=== PATIENT | male | born 1960 | race Two or more races ===

== ENCOUNTER 2021-08-17 10:57 | Inpatient (IN) | payer OTHER ==
[~2021-08-17] VITALS: Ht 172.7 cm; Wt 95.5 kg
[2021-08-17] MEDS ORDERED: DexAMETHasone SOD PHOS 10MG/1ML VIAL INJ IV ONE (11:30)
[2021-08-17 12:43] LABS: Basophils # (auto) 0 10 ^3/uL (0-0.2); Basophils % (auto) 0.2 % (0.0-2.0); Eosinophils # (auto) 0 10 ^3/uL (0-0.8); Eosinophils % (auto) 0.1 % (0.0-7.0); Hematocrit 40.8 % (41.0-53.0); Hemoglobin 14.5 g/dL (13.5-17.5); Lymphocytes # (auto) 0.6 10 ^3/uL (0.4-5.4); Lymphocytes % (auto) 10.2 % (10.0-50.0); Mean Corpuscular Hemoglobin 30.1 pg (28.0-32.0); Mean Corpuscular Hgb Conc. 35.7 g/dL (32.0-36.0); Mean Corpuscular Volume 84.3 fL (80.0-100.0); Monocytes # (auto) 0.6 10 ^3/uL (0-1.3); Monocytes % (auto) 10.8 % (0.0-12.0); Neutrophils # (auto) 4.6 10 ^3/uL (1.6-8.6); Neutrophils % (auto) 78.7 % (37.0-80.0); Nucleated Red Blood Cells % 0.1 %; Red Blood Cells 4.83 10^6/uL (4.5-5.90); Red Cell Distribution Width 13.4 % (11.8-14.3); White Blood Cell 5.8 10^3/uL (4.4-10.8)
[2021-08-17 12:57] LABS: Albumin 3.5 g/dL (3.4-5.0); Calcium 8.1 mg/dL (8.5-10.1); Potassium 3.4 mmol/L (3.5-5.1)
[2021-08-17 13:00] LABS: INR 1.09 (0.9-1.15); Partial Thromboplastin Time 32.1 sec (23.6-33.0)
[2021-08-17 13:04] LABS: BUN/Creatinine Ratio 12.8; Bilirubin, Total 0.9 mg/dL (0.2-1.0); Total Protein 7.4 g/dL (6.4-8.2)
[2021-08-17] MEDS ORDERED: DOCUSATE SOD 100 MG CAP PO PRN (23:15)
[2021-08-17] MEDS ORDERED: ONDANSETRON HCL 4 MG/2 ML VIAL IV PRN (23:15)
[2021-08-17] MEDS ORDERED: HYDROcodone-ACET 5/325MG TAB PO PRN (23:15)
[2021-08-17] MEDS ORDERED: ACETAMINOPHEN 325 MG TAB PO PRN (23:15)
[2021-08-18] MEDS ORDERED: POTASSIUM CHL 20 Meq TABLET PO ONE (00:30)
[2021-08-18] MEDS ORDERED: NITROGLYCERIN 0.4 MG SL TAB SL PRN (00:30)
[2021-08-18] MEDS ORDERED: MORPHINE SULFATE INJECTION 2 MG/ML SYRG IV PRN (00:30)
[2021-08-18 06:47] LABS: Basophils # (auto) 0 10 ^3/uL (0-0.2); Eosinophils # (auto) 0 10 ^3/uL (0-0.8); Lymphocytes # (auto) 0.8 10 ^3/uL (0.4-5.4); Neutrophils # (auto) 3.3 10 ^3/uL (1.6-8.6)
[2021-08-18 06:51] LABS: Basophils % (auto) 0.3 % (0.0-2.0); Lymphocytes % (auto) 17.4 % (10.0-50.0); Monocytes # (auto) 0.5 10 ^3/uL (0-1.3); Monocytes % (auto) 10.3 % (0.0-12.0); Nucleated Red Blood Cells % 0.8 %
[2021-08-18 06:53] LABS: Potassium 3.8 mmol/L (3.5-5.1)
[2021-08-18 07:07] LABS: Albumin 3.4 g/dL (3.4-5.0); BUN/Creatinine Ratio 18.3; Bilirubin, Total 0.8 mg/dL (0.2-1.0); Calcium 8.6 mg/dL (8.5-10.1); Total Protein 7.6 g/dL (6.4-8.2)
[2021-08-18 07:22] LABS: Hematocrit 41.3 % (41.0-53.0); Hemoglobin 14.5 g/dL (13.5-17.5); Mean Corpuscular Hemoglobin 29.7 pg (28.0-32.0); Mean Corpuscular Volume 84.6 fL (80.0-100.0); Red Blood Cells 4.88 10^6/uL (4.5-5.90); White Blood Cell 4.7 10^3/uL (4.4-10.8)
[2021-08-18 07:23] LABS: Mean Corpuscular Hgb Conc. 35.1 g/dL (32.0-36.0); Red Cell Distribution Width 13.8 % (11.8-14.3)
[2021-08-18] MEDS: AZITHROMYCIN 500MG/ 250ML 250 ML IV SCH ×2 (09:20→21:09)
[2021-08-18] MEDS: SODIUM CHLORIDE 0.9% 1,000 ML IV SCH ×2 (09:20→15:55)
[2021-08-18] MEDS: ASPirin 81 mg TAB PO SCH (09:41)
[2021-08-18] MEDS: ASCORBIC ACID 500 MG TAB PO SCH ×2 (09:41→21:10)
[2021-08-18] MEDS: FAMOTIDINE (10MG/ML) 2ML VL IV SCH (09:41)
[2021-08-18] MEDS: ZINC SULFATE 220mg CAP or TAB PO SCH (09:41)
[2021-08-18] MEDS: DexAMETHasone SOD PHOS 10MG/1ML VIAL INJ IV SCH (09:41)
[2021-08-18] MEDS: MULTIPLE VITAMIN TAB PO SCH (09:41)
[2021-08-18] MEDS: ENOXAPARIN SOD 40 MG/0.4 ML SYRINGE SC SCH (10:25)
[2021-08-18 17:00] VITALS: BP 128/81
[2021-08-18] MEDS ORDERED: TAM04C PO (17:01)
[2021-08-18] MEDS ORDERED: FINA5TAB4 PO (17:02)
[2021-08-18] MEDS ORDERED: ATOR20TA PO (17:02)
[2021-08-18] MEDS ORDERED: CHOL20007 OR (17:03)
[2021-08-18] MEDS: TAMSULOSIN HYDROCHLORIDE 0.4 MG CAP PO SCH (18:00)
[2021-08-18] MEDS: ATORVASTATIN 20 MG TAB PO SCH (21:10)
[2021-08-18 22:00] VITALS: BP 118/75
[2021-08-19 05:00] VITALS: BP 117/76
[2021-08-19 08:00] VITALS: BP 119/76
[2021-08-19 08:07] LABS: Basophils # (auto) 0 10 ^3/uL (0-0.2); Basophils % (auto) 0.1 % (0.0-2.0); Eosinophils # (auto) 0 10 ^3/uL (0-0.8); Eosinophils % (auto) 0.1 % (0.0-7.0); Hematocrit 36.4 % (41.0-53.0); Hemoglobin 13.1 g/dL (13.5-17.5); Lymphocytes # (auto) 0.6 10 ^3/uL (0.4-5.4); Lymphocytes % (auto) 6.9 % (10.0-50.0); Mean Corpuscular Hemoglobin 30.4 pg (28.0-32.0); Mean Corpuscular Volume 84.5 fL (80.0-100.0); Monocytes # (auto) 0.7 10 ^3/uL (0-1.3); Monocytes % (auto) 8.8 % (0.0-12.0); Neutrophils # (auto) 6.7 10 ^3/uL (1.6-8.6); Neutrophils % (auto) 84.1 % (37.0-80.0); Nucleated Red Blood Cells % 0.1 %; Red Blood Cells 4.31 10^6/uL (4.5-5.90); Red Cell Distribution Width 13.3 % (11.8-14.3)
[2021-08-19 08:15] LABS: Potassium 3.5 mmol/L (3.5-5.1)
[2021-08-19 08:21] LABS: BUN/Creatinine Ratio 21.9; Calcium 8.2 mg/dL (8.5-10.1)
[2021-08-19] MEDS: SODIUM CHLORIDE 0.9% 1,000 ML IV SCH (08:31)
[2021-08-19] MEDS: ASCORBIC ACID 500 MG TAB PO SCH ×2 (09:59→21:28)
[2021-08-19] MEDS: ZINC SULFATE 220mg CAP or TAB PO SCH (09:59)
[2021-08-19] MEDS: ASPirin 81 mg TAB PO SCH (09:59)
[2021-08-19] MEDS: FAMOTIDINE (10MG/ML) 2ML VL IV SCH (10:00)
[2021-08-19] MEDS: DexAMETHasone SOD PHOS 10MG/1ML VIAL INJ IV SCH (10:00)
[2021-08-19] MEDS: MULTIPLE VITAMIN TAB PO SCH (10:00)
[2021-08-19] MEDS: ENOXAPARIN SOD 40 MG/0.4 ML SYRINGE SC SCH (10:00)
[2021-08-19] MEDS ORDERED: REMDESIVIR PER PHARMACY 0 ML IV SCH (11:15)
[2021-08-19] MEDS ORDERED: cefTRIAXone 1GM/50ML D5W 50 ML IV ONE (11:30)
[2021-08-19 12:43] VITALS: BP 116/60
[2021-08-19] MEDS ORDERED: REMDESIVIR 200 MG in NS 210ml LOADING DOSE ADULT IV ONE (16:00)
[2021-08-19 17:30] VITALS: BP 119/69
[2021-08-19] MEDS: TAMSULOSIN HYDROCHLORIDE 0.4 MG CAP PO SCH (18:44)
[2021-08-19] MEDS: ATORVASTATIN 20 MG TAB PO SCH (21:28)
[2021-08-19] MEDS: DOXYCYCLINE 100 MG TAB/CAP PO SCH (21:28)
[2021-08-19 22:00] VITALS: BP 128/77
[2021-08-20] MEDS: SODIUM CHLORIDE 0.9% 1,000 ML IV SCH ×2 (01:15→17:55)
[2021-08-20 05:00] VITALS: BP 120/72
[2021-08-20 07:28] LABS: Basophils # (auto) 0 10 ^3/uL (0-0.2); Basophils % (auto) 0.1 % (0.0-2.0); Eosinophils # (auto) 0 10 ^3/uL (0-0.8); Hematocrit 35.1 % (41.0-53.0); Hemoglobin 12.7 g/dL (13.5-17.5); Lymphocytes # (auto) 0.6 10 ^3/uL (0.4-5.4); Lymphocytes % (auto) 7.3 % (10.0-50.0); Mean Corpuscular Hemoglobin 30.8 pg (28.0-32.0); Mean Corpuscular Hgb Conc. 36.1 g/dL (32.0-36.0); Mean Corpuscular Volume 85.3 fL (80.0-100.0); Monocytes # (auto) 0.5 10 ^3/uL (0-1.3); Monocytes % (auto) 6.1 % (0.0-12.0); Neutrophils # (auto) 7.2 10 ^3/uL (1.6-8.6); Neutrophils % (auto) 86.5 % (37.0-80.0); Nucleated Red Blood Cells % 0.1 %; Red Blood Cells 4.11 10^6/uL (4.5-5.90); Red Cell Distribution Width 13.4 % (11.8-14.3); White Blood Cell 8.3 10^3/uL (4.4-10.8)
[2021-08-20 07:42] LABS: Potassium 3.7 mmol/L (3.5-5.1)
[2021-08-20 07:51] LABS: Albumin 2.8 g/dL (3.4-5.0); BUN/Creatinine Ratio 18.4; Calcium 8.3 mg/dL (8.5-10.1)
[2021-08-20 07:53] LABS: Bilirubin, Total 0.6 mg/dL (0.2-1.0); Total Protein 5.9 g/dL (6.4-8.2)
[2021-08-20] MEDS: cefTRIAXone 1GM/50ML D5W 50 ML IV SCH (09:21)
[2021-08-20 09:22] VITALS: BP 124/71
[2021-08-20] MEDS: FAMOTIDINE (10MG/ML) 2ML VL IV SCH (09:22)
[2021-08-20] MEDS: ASPirin 81 mg TAB PO SCH (09:22)
[2021-08-20] MEDS: ZINC SULFATE 220mg CAP or TAB PO SCH (09:22)
[2021-08-20] MEDS: DexAMETHasone SOD PHOS 10MG/1ML VIAL INJ IV SCH (09:22)
[2021-08-20] MEDS: DOXYCYCLINE 100 MG TAB/CAP PO SCH ×2 (09:23→21:56)
[2021-08-20] MEDS: ASCORBIC ACID 500 MG TAB PO SCH ×2 (09:23→21:57)
[2021-08-20] MEDS: ENOXAPARIN SOD 40 MG/0.4 ML SYRINGE SC SCH (09:23)
[2021-08-20] MEDS: MULTIPLE VITAMIN TAB PO SCH (09:23)
[2021-08-20 12:34] VITALS: BP 137/62
[2021-08-20] MEDS: REMDESIVIR 100mg 100 MG in SODIUM CHL 0.9% 230 ML IV SCH (16:03)
[2021-08-20 16:42] VITALS: BP 119/68
[2021-08-20] MEDS ORDERED: ALBUTEROL SULF HFA 90MCG INH 200DOSE IN SCH (18:00)
[2021-08-20] MEDS: TAMSULOSIN HYDROCHLORIDE 0.4 MG CAP PO SCH (18:53)
[2021-08-20 20:00] VITALS: BP 109/77
[2021-08-20] MEDS: FINASTERIDE 5 MG TAB PO SCH (20:30)
[2021-08-20] MEDS: ATORVASTATIN 20 MG TAB PO SCH (21:56)
[2021-08-20 22:00] VITALS: BP 109/77
[2021-08-21 05:00] VITALS: BP 110/66
[2021-08-21] MEDS ORDERED: ALBUTEROL SULF HFA 90MCG INH 200DOSE IN PRN (06:00)
[2021-08-21 06:07] LABS: Basophils # (auto) 0 10 ^3/uL (0-0.2); Basophils % (auto) 0.2 % (0.0-2.0); Eosinophils # (auto) 0 10 ^3/uL (0-0.8); Hemoglobin 12.8 g/dL (13.5-17.5); Lymphocytes # (auto) 0.6 10 ^3/uL (0.4-5.4); Monocytes # (auto) 0.3 10 ^3/uL (0-1.3); Monocytes % (auto) 4.9 % (0.0-12.0)
[2021-08-21 06:10] LABS: Eosinophils % (auto) 0.3 % (0.0-7.0); Hematocrit 35.5 % (41.0-53.0); Lymphocytes % (auto) 8.6 % (10.0-50.0); Mean Corpuscular Hemoglobin 31.2 pg (28.0-32.0); Mean Corpuscular Volume 86.5 fL (80.0-100.0); Neutrophils # (auto) 5.8 10 ^3/uL (1.6-8.6); Nucleated Red Blood Cells % 0.1 %; Red Cell Distribution Width 13.4 % (11.8-14.3); White Blood Cell 6.7 10^3/uL (4.4-10.8)
[2021-08-21] MEDS: SODIUM CHLORIDE 0.9% 1,000 ML IV SCH ×2 (07:00→10:35)
[2021-08-21 08:37] VITALS: BP 143/82
[2021-08-21] MEDS: DexAMETHasone SOD PHOS 10MG/1ML VIAL INJ IV SCH (08:56)
[2021-08-21] MEDS: FAMOTIDINE (10MG/ML) 2ML VL IV SCH (08:56)
[2021-08-21] MEDS: cefTRIAXone 1GM/50ML D5W 50 ML IV SCH (08:56)
[2021-08-21] MEDS: MULTIPLE VITAMIN TAB PO SCH (08:57)
[2021-08-21] MEDS: ASPirin 81 mg TAB PO SCH (08:57)
[2021-08-21] MEDS: ZINC SULFATE 220mg CAP or TAB PO SCH (08:57)
[2021-08-21] MEDS: FINASTERIDE 5 MG TAB PO SCH (08:57)
[2021-08-21] MEDS: ASCORBIC ACID 500 MG TAB PO SCH ×2 (08:58→22:03)
[2021-08-21] MEDS: ENOXAPARIN SOD 40 MG/0.4 ML SYRINGE SC SCH (08:58)
[2021-08-21] MEDS: DOXYCYCLINE 100 MG TAB/CAP PO SCH ×2 (08:58→22:03)
[2021-08-21 09:40] LABS: Potassium 3.4 mmol/L (3.5-5.1)
[2021-08-21 09:46] LABS: Albumin 2.9 g/dL (3.4-5.0); Bilirubin, Total 0.7 mg/dL (0.2-1.0); Calcium 8.2 mg/dL (8.5-10.1); Total Protein 6.4 g/dL (6.4-8.2)
[2021-08-21] MEDS ORDERED: IOHEXOL 350 MG/ML 100ML IJ ONE (10:26)
[2021-08-21] MEDS ORDERED: ALBUTEROL SULF 2.5 MG/0.5ML(0.5%) NEB SOLN NEB PRN (10:30)
[2021-08-21 12:32] VITALS: BP 130/72
[2021-08-21] MEDS: REMDESIVIR 100mg 100 MG in SODIUM CHL 0.9% 230 ML IV SCH ×2 (14:46→15:00)
[2021-08-21 16:43] VITALS: BP 117/67
[2021-08-21] MEDS: TAMSULOSIN HYDROCHLORIDE 0.4 MG CAP PO SCH (17:37)
[2021-08-21 22:00] VITALS: BP 113/83
[2021-08-21] MEDS: ATORVASTATIN 20 MG TAB PO SCH (22:03)
[2021-08-22] VITALS (8 sets, daily range): BP systolic 105–130; BP diastolic 68–79
[2021-08-22 07:20] LABS: Basophils # (auto) 0 10 ^3/uL (0-0.2); Basophils % (auto) 0.1 % (0.0-2.0); Eosinophils # (auto) 0.2 10 ^3/uL (0-0.8); Eosinophils % (auto) 3.1 % (0.0-7.0); Hemoglobin 12.8 g/dL (13.5-17.5); Lymphocytes # (auto) 0.7 10 ^3/uL (0.4-5.4); Lymphocytes % (auto) 10.6 % (10.0-50.0); Mean Corpuscular Hemoglobin 31.2 pg (28.0-32.0); Mean Corpuscular Hgb Conc. 35.6 g/dL (32.0-36.0); Mean Corpuscular Volume 87.6 fL (80.0-100.0); Monocytes # (auto) 0.3 10 ^3/uL (0-1.3); Monocytes % (auto) 4.3 % (0.0-12.0); Neutrophils # (auto) 5.4 10 ^3/uL (1.6-8.6); Neutrophils % (auto) 81.9 % (37.0-80.0); Nucleated Red Blood Cells % 0.1 %; Red Blood Cells 4.11 10^6/uL (4.5-5.90); Red Cell Distribution Width 13.3 % (11.8-14.3); White Blood Cell 6.6 10^3/uL (4.4-10.8)
[2021-08-22 07:34] LABS: Potassium 3.5 mmol/L (3.5-5.1)
[2021-08-22 07:40] LABS: Albumin 2.5 g/dL (3.4-5.0); BUN/Creatinine Ratio 14.1; Calcium 8.4 mg/dL (8.5-10.1)
[2021-08-22 07:42] LABS: Bilirubin, Total 0.8 mg/dL (0.2-1.0)
[2021-08-22] MEDS: FUROSEMIDE 20 MG/2 ML VIAL IV SCH (12:00)
[2021-08-22] MEDS: FAMOTIDINE (10MG/ML) 2ML VL IV SCH (12:00)
[2021-08-22] MEDS: DexAMETHasone SOD PHOS 10MG/1ML VIAL INJ IV SCH (12:00)
[2021-08-22] MEDS: ZINC SULFATE 220mg CAP or TAB PO SCH (12:30)
[2021-08-22] MEDS: ENOXAPARIN SOD 40 MG/0.4 ML SYRINGE SC SCH (12:30)
[2021-08-22] MEDS: DOXYCYCLINE 100 MG TAB/CAP PO SCH ×2 (12:30→21:55)
[2021-08-22] MEDS: ASCORBIC ACID 500 MG TAB PO SCH ×2 (12:30→21:56)
[2021-08-22] MEDS: FINASTERIDE 5 MG TAB PO SCH (12:30)
[2021-08-22] MEDS: MULTIPLE VITAMIN TAB PO SCH (12:30)
[2021-08-22] MEDS: cefTRIAXone 1GM/50ML D5W 50 ML IV SCH (12:30)
[2021-08-22] MEDS: ASPirin 81 mg TAB PO SCH (12:30)
[2021-08-22] MEDS: REMDESIVIR 100mg 100 MG in SODIUM CHL 0.9% 230 ML IV SCH (16:30)
[2021-08-22] MEDS: TAMSULOSIN HYDROCHLORIDE 0.4 MG CAP PO SCH (18:00)
[2021-08-22] MEDS: SODIUM CHLORIDE 0.9% 1,000 ML IV SCH (19:55)
[2021-08-22] MEDS: ALBUTEROL SULF HFA 90MCG INH 200DOSE IN PRN (21:25)
[2021-08-22] MEDS: ATORVASTATIN 20 MG TAB PO SCH (21:55)
[2021-08-23] VITALS (7 sets, daily range): BP systolic 106–128; BP diastolic 67–87
[2021-08-23 07:07] LABS: Basophils # (auto) 0 10 ^3/uL (0-0.2); Eosinophils # (auto) 0 10 ^3/uL (0-0.8); Hematocrit 34.8 % (41.0-53.0); Lymphocytes # (auto) 0.5 10 ^3/uL (0.4-5.4); Monocytes # (auto) 0.3 10 ^3/uL (0-1.3); Neutrophils # (auto) 3.9 10 ^3/uL (1.6-8.6); Neutrophils % (auto) 82.7 % (37.0-80.0); White Blood Cell 4.7 10^3/uL (4.4-10.8)
[2021-08-23 07:10] LABS: Basophils % (auto) 0.4 % (0.0-2.0); Eosinophils % (auto) 0.7 % (0.0-7.0); Hemoglobin 12.4 g/dL (13.5-17.5); Lymphocytes % (auto) 9.7 % (10.0-50.0); Mean Corpuscular Hemoglobin 31.6 pg (28.0-32.0); Mean Corpuscular Hgb Conc. 35.7 g/dL (32.0-36.0); Mean Corpuscular Volume 88.5 fL (80.0-100.0); Monocytes % (auto) 6.5 % (0.0-12.0); Nucleated Red Blood Cells % 0.5 %; Red Blood Cells 3.93 10^6/uL (4.5-5.90); Red Cell Distribution Width 13.2 % (11.8-14.3)
[2021-08-23 07:33] LABS: Albumin 2.3 g/dL (3.4-5.0); BUN/Creatinine Ratio 13.5; Bilirubin, Total 0.7 mg/dL (0.2-1.0); Calcium 8.4 mg/dL (8.5-10.1); Total Protein 5.9 g/dL (6.4-8.2)
[2021-08-23] MEDS: cefTRIAXone 1GM/50ML D5W 50 ML IV SCH (10:00)
[2021-08-23] MEDS: DexAMETHasone SOD PHOS 10MG/1ML VIAL INJ IV SCH (10:30)
[2021-08-23] MEDS: ASPirin 81 mg TAB PO SCH (10:30)
[2021-08-23] MEDS: ENOXAPARIN SOD 40 MG/0.4 ML SYRINGE SC SCH (10:30)
[2021-08-23] MEDS: FINASTERIDE 5 MG TAB PO SCH (10:30)
[2021-08-23] MEDS: ZINC SULFATE 220mg CAP or TAB PO SCH (10:30)
[2021-08-23] MEDS: FUROSEMIDE 20 MG/2 ML VIAL IV SCH (10:30)
[2021-08-23] MEDS: DOXYCYCLINE 100 MG TAB/CAP PO SCH ×2 (10:30→21:02)
[2021-08-23] MEDS: ASCORBIC ACID 500 MG TAB PO SCH ×2 (10:30→21:02)
[2021-08-23] MEDS: FAMOTIDINE (10MG/ML) 2ML VL IV SCH (10:30)
[2021-08-23] MEDS: MULTIPLE VITAMIN TAB PO SCH (10:30)
[2021-08-23] MEDS: SODIUM CHLORIDE 0.9% 1,000 ML IV SCH (12:35)
[2021-08-23] MEDS: REMDESIVIR 100mg 100 MG in SODIUM CHL 0.9% 230 ML IV SCH (15:45)
[2021-08-23] MEDS: TAMSULOSIN HYDROCHLORIDE 0.4 MG CAP PO SCH (18:30)
[2021-08-23] MEDS: ATORVASTATIN 20 MG TAB PO SCH (21:02)
[2021-08-23] MEDS: ALBUTEROL SULF HFA 90MCG INH 200DOSE IN PRN (21:58)
[2021-08-24] VITALS (8 sets, daily range): BP systolic 109–130; BP diastolic 70–81
[2021-08-24] MEDS: SODIUM CHLORIDE 0.9% 1,000 ML IV SCH ×2 (05:15→21:32)
[2021-08-24] MEDS: ALBUTEROL SULF HFA 90MCG INH 200DOSE IN PRN ×2 (06:05→20:15)
[2021-08-24 06:56] LABS: Basophils # (auto) 0 10 ^3/uL (0-0.2); Eosinophils # (auto) 0 10 ^3/uL (0-0.8); Monocytes # (auto) 0.4 10 ^3/uL (0-1.3); Neutrophils # (auto) 6.5 10 ^3/uL (1.6-8.6)
[2021-08-24 07:01] LABS: Basophils % (auto) 0.1 % (0.0-2.0); Eosinophils % (auto) 0.5 % (0.0-7.0); Hematocrit 36.9 % (41.0-53.0); Hemoglobin 12.7 g/dL (13.5-17.5); Lymphocytes # (auto) 0.6 10 ^3/uL (0.4-5.4); Lymphocytes % (auto) 7.8 % (10.0-50.0); Mean Corpuscular Hemoglobin 30.1 pg (28.0-32.0); Mean Corpuscular Hgb Conc. 34.4 g/dL (32.0-36.0); Mean Corpuscular Volume 87.4 fL (80.0-100.0); Monocytes % (auto) 5.5 % (0.0-12.0); Neutrophils % (auto) 86.1 % (37.0-80.0); Red Blood Cells 4.22 10^6/uL (4.5-5.90); Red Cell Distribution Width 13.6 % (11.8-14.3); White Blood Cell 7.6 10^3/uL (4.4-10.8)
[2021-08-24 07:06] LABS: BUN/Creatinine Ratio 22.7; Calcium 8.8 mg/dL (8.5-10.1); Potassium 4.1 mmol/L (3.5-5.1)
[2021-08-24] MEDS: cefTRIAXone 1GM/50ML D5W 50 ML IV SCH (08:30)
[2021-08-24] MEDS: FAMOTIDINE (10MG/ML) 2ML VL IV SCH (09:45)
[2021-08-24] MEDS: ZINC SULFATE 220mg CAP or TAB PO SCH (09:45)
[2021-08-24] MEDS: DexAMETHasone SOD PHOS 10MG/1ML VIAL INJ IV SCH (09:45)
[2021-08-24] MEDS: FUROSEMIDE 20 MG/2 ML VIAL IV SCH (09:45)
[2021-08-24] MEDS: FINASTERIDE 5 MG TAB PO SCH (09:45)
[2021-08-24] MEDS: DOXYCYCLINE 100 MG TAB/CAP PO SCH (09:45)
[2021-08-24] MEDS: ASPirin 81 mg TAB PO SCH (09:45)
[2021-08-24] MEDS: ENOXAPARIN SOD 40 MG/0.4 ML SYRINGE SC SCH (09:45)
[2021-08-24] MEDS: ASCORBIC ACID 500 MG TAB PO SCH ×2 (09:45→21:32)
[2021-08-24] MEDS: MULTIPLE VITAMIN TAB PO SCH (09:45)
[2021-08-24] MEDS: REMDESIVIR 100mg 100 MG in SODIUM CHL 0.9% 230 ML IV SCH (15:45)
[2021-08-24] MEDS: TAMSULOSIN HYDROCHLORIDE 0.4 MG CAP PO SCH (18:00)
[2021-08-24] MEDS: ATORVASTATIN 20 MG TAB PO SCH (21:32)
[2021-08-25 05:00] VITALS: BP 128/85
[2021-08-25 07:41] LABS: Basophils # (auto) 0.1 10 ^3/uL (0-0.2); Eosinophils # (auto) 0 10 ^3/uL (0-0.8); Lymphocytes # (auto) 0.5 10 ^3/uL (0.4-5.4); Monocytes # (auto) 0.3 10 ^3/uL (0-1.3); White Blood Cell 8.3 10^3/uL (4.4-10.8)
[2021-08-25 07:43] LABS: Basophils % (auto) 1.3 % (0.0-2.0); Eosinophils % (auto) 0.4 % (0.0-7.0); Hematocrit 37.4 % (41.0-53.0); Hemoglobin 13.4 g/dL (13.5-17.5); Lymphocytes % (auto) 6.3 % (10.0-50.0); Mean Corpuscular Hemoglobin 30.8 pg (28.0-32.0); Mean Corpuscular Hgb Conc. 35.8 g/dL (32.0-36.0); Monocytes % (auto) 3.7 % (0.0-12.0); Neutrophils # (auto) 7.3 10 ^3/uL (1.6-8.6); Neutrophils % (auto) 88.3 % (37.0-80.0); Nucleated Red Blood Cells % 0.1 %; Red Blood Cells 4.35 10^6/uL (4.5-5.90); Red Cell Distribution Width 13.4 % (11.8-14.3)
[2021-08-25] MEDS: ALBUTEROL SULF HFA 90MCG INH 200DOSE IN PRN (07:48)
[2021-08-25 08:01] LABS: Albumin 2.5 g/dL (3.4-5.0); BUN/Creatinine Ratio 21.6; Bilirubin, Total 0.5 mg/dL (0.2-1.0); Calcium 8.6 mg/dL (8.5-10.1)
[2021-08-25] MEDS: cefTRIAXone 1GM/50ML D5W 50 ML IV SCH (09:00)
[2021-08-25] MEDS: FAMOTIDINE (10MG/ML) 2ML VL IV SCH (09:11)
[2021-08-25] MEDS: ASPirin 81 mg TAB PO SCH (09:11)
[2021-08-25] MEDS: ZINC SULFATE 220mg CAP or TAB PO SCH (09:11)
[2021-08-25] MEDS: DexAMETHasone SOD PHOS 10MG/1ML VIAL INJ IV SCH (09:11)
[2021-08-25] MEDS: MULTIPLE VITAMIN TAB PO SCH (09:11)
[2021-08-25] MEDS: ASCORBIC ACID 500 MG TAB PO SCH ×2 (09:12→22:12)
[2021-08-25] MEDS: ENOXAPARIN SOD 40 MG/0.4 ML SYRINGE SC SCH (09:12)
[2021-08-25] MEDS: FINASTERIDE 5 MG TAB PO SCH (09:12)
[2021-08-25 09:30] VITALS: BP 108/69
[2021-08-25] MEDS: FUROSEMIDE 20 MG/2 ML VIAL IV SCH (10:04)
[2021-08-25 13:00] VITALS: BP 110/65
[2021-08-25] MEDS: SODIUM CHLORIDE 0.9% 1,000 ML IV SCH (14:22)
[2021-08-25 16:25] VITALS: BP 109/74
[2021-08-25] MEDS: TAMSULOSIN HYDROCHLORIDE 0.4 MG CAP PO SCH (19:30)
[2021-08-25 22:00] VITALS: BP 108/65
[2021-08-25] MEDS: ATORVASTATIN 20 MG TAB PO SCH (22:12)
[2021-08-26 05:00] VITALS: BP 107/71
[2021-08-26 06:58] LABS: Basophils # (auto) 0 10 ^3/uL (0-0.2); Basophils % (auto) 0.1 % (0.0-2.0); Eosinophils # (auto) 0.1 10 ^3/uL (0-0.8); Eosinophils % (auto) 0.6 % (0.0-7.0); Hematocrit 38.6 % (41.0-53.0); Hemoglobin 13.3 g/dL (13.5-17.5); Lymphocytes # (auto) 0.7 10 ^3/uL (0.4-5.4); Lymphocytes % (auto) 7.5 % (10.0-50.0); Mean Corpuscular Hemoglobin 29.8 pg (28.0-32.0); Mean Corpuscular Hgb Conc. 34.5 g/dL (32.0-36.0); Mean Corpuscular Volume 86.4 fL (80.0-100.0); Monocytes # (auto) 0.3 10 ^3/uL (0-1.3); Monocytes % (auto) 3.7 % (0.0-12.0); Neutrophils # (auto) 8.4 10 ^3/uL (1.6-8.6); Neutrophils % (auto) 88.1 % (37.0-80.0); Red Blood Cells 4.47 10^6/uL (4.5-5.90); Red Cell Distribution Width 13.5 % (11.8-14.3); White Blood Cell 9.5 10^3/uL (4.4-10.8)
[2021-08-26 07:12] LABS: Potassium 4.6 mmol/L (3.5-5.1)
[2021-08-26] MEDS: SODIUM CHLORIDE 0.9% 1,000 ML IV SCH (07:15)
[2021-08-26 07:21] LABS: Albumin 2.3 g/dL (3.4-5.0); BUN/Creatinine Ratio 23.5; Bilirubin, Total 0.6 mg/dL (0.2-1.0); Calcium 8.8 mg/dL (8.5-10.1)
[2021-08-26 08:57] VITALS: BP 101/64
[2021-08-26] MEDS: cefTRIAXone 1GM/50ML D5W 50 ML IV SCH (09:04)
[2021-08-26] MEDS: ASCORBIC ACID 500 MG TAB PO SCH (09:04)
[2021-08-26] MEDS: FAMOTIDINE (10MG/ML) 2ML VL IV SCH (09:04)
[2021-08-26] MEDS: ASPirin 81 mg TAB PO SCH (09:04)
[2021-08-26] MEDS: FUROSEMIDE 20 MG/2 ML VIAL IV SCH (09:04)
[2021-08-26] MEDS: ZINC SULFATE 220mg CAP or TAB PO SCH (09:04)
[2021-08-26] MEDS: DexAMETHasone SOD PHOS 10MG/1ML VIAL INJ IV SCH (09:04)
[2021-08-26] MEDS: ENOXAPARIN SOD 40 MG/0.4 ML SYRINGE SC SCH (09:04)
[2021-08-26] MEDS: MULTIPLE VITAMIN TAB PO SCH (09:04)
[2021-08-26] MEDS: FINASTERIDE 5 MG TAB PO SCH (09:04)
[2021-08-26] MEDS ORDERED: ASCO500T11 PO (11:25)
[2021-08-26] MEDS ORDERED: ALBUAER3 IN (11:25)
[2021-08-26] MEDS ORDERED: ERGO20002 PO (11:25)
[2021-08-26] MEDS ORDERED: DEXA4TAB90 PO (11:25)
[2021-08-26 13:00] VITALS: BP 115/71
== END 2021-08-26 17:30 | disposition home or self-care (01) | DRG 137 ==
LOC: ER 10:57 → OVERFLOW 08-18 00:26 → WEST WING 08-18 15:28
PROVIDERS: ADMIT Nurse Practitioner Family; ATTEND Internal Medicine Pulmonary Disease
PROC: XW033E5 Introduction of Remdesivir Anti-infective into Peripheral Vein, Percutaneous Approach, New Technology Group 5 (ICD-10-PCS; principal; 2021-08-19)
DX: U07.1 COVID-19 (principal); J96.01 Acute respiratory failure with hypoxia; J12.82 Pneumonia due to coronavirus disease 2019; N17.9 Acute kidney failure, unspecified; E87.1 Hypo-osmolality and hyponatremia; E87.6 Hypokalemia; I10 Essential (primary) hypertension; E86.0 Dehydration; N40.0 Benign prostatic hyperplasia without lower urinary tract symptoms; Z23 Encounter for immunization
CPT/HCPCS: 36415; 36600; 71046; 71275; 80048; 80053; 82728; 82805; 83036; 83880; 84484; 85025; 85379; 85610; 85730; 86141; 87426; 93005; 93970; 94640; 96361; 96365; 96366; 96372; 96375; 96376; G0378; J0696; J1100; J2405; J3490

== ENCOUNTER 2021-10-02 13:50 | Inpatient (IN) | payer OTHER ==
[~2021-10-02] VITALS: Ht 167.6 cm; Wt 88.9 kg
[~2021-10-02 13:50] MED LIST: ALBUAER3 IN; ASCO500T11 PO; ATOR20TA PO; CHOL20007 OR; DEXA4TAB90 PO; ERGO20002 PO; FINA5TAB4 PO; TAM04C PO
[2021-10-02] MEDS: SODIUM CHLORIDE 0.9% 1,000 ML IV ONE (16:15)
[2021-10-02 17:13] LABS: Basophils # (auto) 0.1 10 ^3/uL (0-0.2); Basophils % (auto) 1.1 % (0.0-2.0); Eosinophils # (auto) 0.1 10 ^3/uL (0-0.8); Eosinophils % (auto) 0.9 % (0.0-7.0); Hematocrit 29.2 % (41.0-53.0); Hemoglobin 10.1 g/dL (13.5-17.5); Lymphocytes # (auto) 1.3 10 ^3/uL (0.4-5.4); Lymphocytes % (auto) 20.3 % (10.0-50.0); Mean Corpuscular Hemoglobin 30.1 pg (28.0-32.0); Mean Corpuscular Hgb Conc. 34.7 g/dL (32.0-36.0); Mean Corpuscular Volume 86.9 fL (80.0-100.0); Monocytes # (auto) 0.4 10 ^3/uL (0-1.3); Monocytes % (auto) 5.4 % (0.0-12.0); Neutrophils # (auto) 4.8 10 ^3/uL (1.6-8.6); Neutrophils % (auto) 72.3 % (37.0-80.0); Nucleated Red Blood Cells % 0.1 %; Red Blood Cells 3.36 10^6/uL (4.5-5.90); White Blood Cell 6.6 10^3/uL (4.4-10.8)
[2021-10-02 17:29] LABS: Albumin 2.4 g/dL (3.4-5.0); Calcium 8.6 mg/dL (8.5-10.1); Magnesium 2.3 mg/dL (1.6-2.6); Potassium 3.5 mmol/L (3.5-5.1)
[2021-10-02 17:35] LABS: BUN/Creatinine Ratio 10.8; Bilirubin, Total 0.9 mg/dL (0.2-1.0); Total Protein 6.6 g/dL (6.4-8.2)
[2021-10-02 17:38] LABS: INR 1.06 (0.9-1.15); Partial Thromboplastin Time 42.8 sec (23.6-33.0)
[2021-10-02] MEDS ORDERED: CHOLECALCIFEROL (VITD3) 2,000 UNIT CAP/TAB PO ONE (18:15)
[2021-10-02] MEDS ORDERED: ASPirin 325 MG TAB PO ONE (18:15)
[2021-10-02] MEDS ORDERED: DexAMETHasone SOD PHOS 10MG/1ML VIAL INJ IV ONE (18:15)
[2021-10-02] MEDS ORDERED: ASCORBIC ACID 500 MG TAB PO ONE (18:15)
[2021-10-02] MEDS ORDERED: cefTRIAXone 1GM/50ML D5W 50 ML IV ONE (18:15)
[2021-10-02] MEDS ORDERED: ZINC SULFATE 220mg CAP or TAB PO ONE (18:15)
[2021-10-02] MEDS ORDERED: AZITHROMYCIN 500MG/ 250ML 250 ML IV ONE (18:15)
[2021-10-02] MEDS ORDERED: IOHEXOL 350 MG/ML 100ML IJ ONE (18:31)
[2021-10-03] MEDS ORDERED: ENOXAPARIN SOD 80 MG/0.8ML SYRINGE SC ONE (00:15)
[2021-10-03] MEDS ORDERED: ONDANSETRON HCL 4 MG/2 ML VIAL IV PRN (01:30)
[2021-10-03] MEDS ORDERED: MORPHINE SULFATE 4 MG/ML SYR/VIAL IV PRN (01:30)
[2021-10-03] MEDS ORDERED: IPRATROPIUM BROM 0.5 MG/2.5ML INH SOL NEB PRN (01:30)
[2021-10-03] MEDS ORDERED: SODIUM CHLORIDE 0.9% 1,000 ML IV SCH (01:30)
[2021-10-03] MEDS ORDERED: DOCUSATE SOD 100 MG CAP PO PRN (01:30)
[2021-10-03] MEDS ORDERED: ALBUTEROL SULF 2.5 MG/0.5ML(0.5%) NEB SOLN NEB PRN (01:30)
[2021-10-03] MEDS ORDERED: DEXTROSE (50%) 50ML SYRG IV PRN (01:30)
[2021-10-03] MEDS ORDERED: cefTRIAXone SOD 1,000 MG VL ONE (03:58)
[2021-10-03 05:00] VITALS: BP 121/73
[2021-10-03 05:15] VITALS: BP 121/73
[2021-10-03] MEDS: SODIUM CHLORIDE 0.9% 1,000 ML IV ONE (05:26)
[2021-10-03] MEDS ORDERED: ZINC220C8 PO (05:48)
[2021-10-03] MEDS: ACCU-CHEK COMFORT CURVE STRIP VI SCH ×4 (05:52→21:04)
[2021-10-03] MEDS: InsuLIN REG 1unit/0.01ml Soln (100units/ml) SC SCH ×4 (05:56→21:03)
[2021-10-03 07:02] LABS: Urine Bacteria FEW /hpf (None Seen); Urine Blood Negative /uL (Negative); Urine Specific Gravity 1.021 (1.001-1.035); Urine WBC 2 /hpf (0 - 3)
[2021-10-03 09:00] VITALS: BP 102/64
[2021-10-03] MEDS: cefTRIAXone 1GM/50ML D5W 50 ML IV SCH (09:00)
[2021-10-03] MEDS: FINASTERIDE 5 MG TAB PO SCH (09:19)
[2021-10-03] MEDS: FAMOTIDINE 20 MG TAB PO SCH (09:20)
[2021-10-03] MEDS: ATORVASTATIN 20 MG TAB PO SCH (09:20)
[2021-10-03] MEDS: AZITHROMYCIN 500MG/ 250ML 250 ML IV SCH (10:00)
[2021-10-03] MEDS ORDERED: ENOXAPARIN SOD 100 MG/1 ML SYRINGE SC SCH (10:00)
[2021-10-03] MEDS: ENOXAPARIN SOD 80 MG/0.8ML SYRINGE SC SCH (12:27)
[2021-10-03 13:00] VITALS: BP 113/73
[2021-10-03] MEDS: SODIUM CHLORIDE 0.9% 1,000 ML IV SCH ×2 (13:22→19:04)
[2021-10-03] MEDS: ACETAMINOPHEN 325 MG TAB PO PRN (16:57)
[2021-10-03 17:00] VITALS: BP 128/70
[2021-10-03] MEDS: TAMSULOSIN HYDROCHLORIDE 0.4 MG CAP PO SCH (21:01)
[2021-10-03] MEDS: INSULIN LANTUS (GLARGINE) 1 /0.01ml (100units/ml) SC SCH (21:04)
[2021-10-03 21:52] VITALS: BP 119/64
[2021-10-04] MEDS: ENOXAPARIN SOD 80 MG/0.8ML SYRINGE SC SCH (00:01)
[2021-10-04 05:00] VITALS: BP 99/65
[2021-10-04] MEDS: ACCU-CHEK COMFORT CURVE STRIP VI SCH ×4 (05:57→22:00)
[2021-10-04] MEDS: InsuLIN REG 1unit/0.01ml Soln (100units/ml) SC SCH ×4 (05:58→22:00)
[2021-10-04 06:09] LABS: Basophils # (auto) 0 10 ^3/uL (0-0.2); Basophils % (auto) 0.5 % (0.0-2.0); Eosinophils # (auto) 0.1 10 ^3/uL (0-0.8); Eosinophils % (auto) 1.4 % (0.0-7.0); Hematocrit 26.7 % (41.0-53.0); Hemoglobin 9.3 g/dL (13.5-17.5); Lymphocytes # (auto) 1.3 10 ^3/uL (0.4-5.4); Lymphocytes % (auto) 22.1 % (10.0-50.0); Mean Corpuscular Hemoglobin 30.2 pg (28.0-32.0); Mean Corpuscular Hgb Conc. 34.8 g/dL (32.0-36.0); Mean Corpuscular Volume 86.7 fL (80.0-100.0); Monocytes # (auto) 0.3 10 ^3/uL (0-1.3); Monocytes % (auto) 5.8 % (0.0-12.0); Neutrophils # (auto) 4.2 10 ^3/uL (1.6-8.6); Neutrophils % (auto) 70.2 % (37.0-80.0); Red Blood Cells 3.08 10^6/uL (4.5-5.90); Red Cell Distribution Width 15.2 % (11.8-14.3); White Blood Cell 5.9 10^3/uL (4.4-10.8)
[2021-10-04 06:40] LABS: Magnesium 1.9 mg/dL (1.6-2.6)
[2021-10-04 06:47] LABS: Albumin 2.1 g/dL (3.4-5.0); BUN/Creatinine Ratio 8.8; Bilirubin, Total 0.5 mg/dL (0.2-1.0); Calcium 8.4 mg/dL (8.5-10.1); Total Protein 6.1 g/dL (6.4-8.2)
[2021-10-04] MEDS: cefTRIAXone 1GM/50ML D5W 50 ML IV SCH (08:09)
[2021-10-04 09:00] VITALS: BP 117/80
[2021-10-04] MEDS: ATORVASTATIN 20 MG TAB PO SCH (09:07)
[2021-10-04] MEDS: FAMOTIDINE 20 MG TAB PO SCH (09:07)
[2021-10-04] MEDS: AZITHROMYCIN 500MG/ 250ML 250 ML IV SCH (09:07)
[2021-10-04] MEDS: FINASTERIDE 5 MG TAB PO SCH (09:08)
[2021-10-04] MEDS ORDERED: ALBUAER3 IN (09:30)
[2021-10-04] MEDS ORDERED: CHOL20007 OR (09:30)
[2021-10-04] MEDS ORDERED: POTASSIUM CHL 20 Meq TABLET PO ONE (11:30)
[2021-10-04] MEDS ORDERED: ALBUTEROL SULF 2.5 MG/0.5ML(0.5%) NEB SOLN NEB PRN (11:30)
[2021-10-04] MEDS ORDERED: MAGNESIUM SULFATE 1GM/100ML 100 ML IV ONE (11:30)
[2021-10-04] MEDS: APIXABAN 5 MG TAB PO SCH ×2 (12:09→22:00)
[2021-10-04 13:00] VITALS: BP 118/73
[2021-10-04] MEDS: ALBUTEROL SULF 2.5 MG/0.5ML(0.5%) NEB SOLN NEB SCH ×3 (14:21→22:32)
[2021-10-04] MEDS: IPRATROPIUM BROM 0.5 MG/2.5ML INH SOL NEB SCH ×3 (14:21→22:32)
[2021-10-04 16:55] VITALS: BP 110/74
[2021-10-04 22:00] VITALS: BP 132/82
[2021-10-04] MEDS: INSULIN LANTUS (GLARGINE) 1 /0.01ml (100units/ml) SC SCH (22:00)
[2021-10-04] MEDS: TAMSULOSIN HYDROCHLORIDE 0.4 MG CAP PO SCH (22:00)
[2021-10-04] MEDS: SODIUM CHLORIDE 0.9% 1,000 ML IV SCH (22:48)
[2021-10-05] MEDS: IPRATROPIUM BROM 0.5 MG/2.5ML INH SOL NEB SCH ×6 (02:28→22:00)
[2021-10-05] MEDS: ALBUTEROL SULF 2.5 MG/0.5ML(0.5%) NEB SOLN NEB SCH ×6 (02:28→22:00)
[2021-10-05 05:00] VITALS: BP 107/61
[2021-10-05] MEDS: InsuLIN REG 1unit/0.01ml Soln (100units/ml) SC SCH ×4 (06:33→21:39)
[2021-10-05] MEDS: ACCU-CHEK COMFORT CURVE STRIP VI SCH ×4 (06:50→21:30)
[2021-10-05 07:39] LABS: Calcium 8.4 mg/dL (8.5-10.1); Magnesium 2.5 mg/dL (1.6-2.6)
[2021-10-05 07:42] LABS: BUN/Creatinine Ratio 8.1
[2021-10-05 07:48] LABS: Potassium 2.9 mmol/L (3.5-5.1)
[2021-10-05 07:51] LABS: Basophils # (auto) 0 10 ^3/uL (0-0.2); Eosinophils # (auto) 0.1 10 ^3/uL (0-0.8); Lymphocytes # (auto) 1.1 10 ^3/uL (0.4-5.4); Monocytes # (auto) 0.4 10 ^3/uL (0-1.3); Nucleated Red Blood Cells % 0.1 %; White Blood Cell 5.7 10^3/uL (4.4-10.8)
[2021-10-05 07:53] LABS: Basophils % (auto) 0.5 % (0.0-2.0); Hematocrit 23.2 % (41.0-53.0); Hemoglobin 8.3 g/dL (13.5-17.5); Lymphocytes % (auto) 20.2 % (10.0-50.0); Mean Corpuscular Hemoglobin 30.9 pg (28.0-32.0); Mean Corpuscular Hgb Conc. 35.8 g/dL (32.0-36.0); Mean Corpuscular Volume 86.4 fL (80.0-100.0); Monocytes % (auto) 7.3 % (0.0-12.0); Red Blood Cells 2.68 10^6/uL (4.5-5.90)
[2021-10-05 09:00] VITALS: BP_SYST 111; BP_SYST 147; BP_DIAS 68; BP_DIAS 99
[2021-10-05] MEDS: cefTRIAXone 1GM/50ML D5W 50 ML IV SCH (10:02)
[2021-10-05] MEDS: APIXABAN 5 MG TAB PO SCH ×2 (10:02→21:29)
[2021-10-05] MEDS: FAMOTIDINE 20 MG TAB PO SCH (10:02)
[2021-10-05] MEDS: ATORVASTATIN 20 MG TAB PO SCH (10:02)
[2021-10-05] MEDS: FINASTERIDE 5 MG TAB PO SCH (10:03)
[2021-10-05] MEDS ORDERED: POTASSIUM EFFERVESENT TAB 25 MEQ GT ONE (11:00)
[2021-10-05] MEDS: AZITHROMYCIN 500MG/ 250ML 250 ML IV SCH (11:15)
[2021-10-05 13:00] VITALS: BP 112/75
[2021-10-05] MEDS: SODIUM CHLORIDE 0.9% 1,000 ML IV SCH (15:15)
[2021-10-05 17:00] VITALS: BP 134/69
[2021-10-05] MEDS: ACETAMINOPHEN 325 MG TAB PO PRN (17:10)
[2021-10-05] MEDS: PROMETHAZINE-DM 5 ML ORAL SYRUP PO PRN (17:49)
[2021-10-05 21:00] VITALS: BP 134/69
[2021-10-05] MEDS: TAMSULOSIN HYDROCHLORIDE 0.4 MG CAP PO SCH (21:30)
[2021-10-05] MEDS: INSULIN LANTUS (GLARGINE) 1 /0.01ml (100units/ml) SC SCH (21:38)
[2021-10-05 22:02] VITALS: BP 103/66
[2021-10-06] MEDS: IPRATROPIUM BROM 0.5 MG/2.5ML INH SOL NEB SCH ×6 (02:00→22:00)
[2021-10-06] MEDS: ALBUTEROL SULF 2.5 MG/0.5ML(0.5%) NEB SOLN NEB SCH ×6 (02:00→22:00)
[2021-10-06 05:00] VITALS: BP 99/58
[2021-10-06] MEDS: PROMETHAZINE-DM 5 ML ORAL SYRUP PO PRN ×2 (06:06→19:50)
[2021-10-06] MEDS: ACCU-CHEK COMFORT CURVE STRIP VI SCH ×4 (06:08→22:06)
[2021-10-06] MEDS: InsuLIN REG 1unit/0.01ml Soln (100units/ml) SC SCH ×4 (06:08→22:18)
[2021-10-06 06:15] VITALS: BP 128/67
[2021-10-06 09:00] VITALS: BP 131/71
[2021-10-06] MEDS: FAMOTIDINE 20 MG TAB PO SCH (10:00)
[2021-10-06] MEDS: AZITHROMYCIN 500MG/ 250ML 250 ML IV SCH (10:30)
[2021-10-06] MEDS: APIXABAN 5 MG TAB PO SCH ×2 (10:31→22:18)
[2021-10-06] MEDS: FINASTERIDE 5 MG TAB PO SCH (10:32)
[2021-10-06] MEDS: ATORVASTATIN 20 MG TAB PO SCH (10:32)
[2021-10-06] MEDS: cefTRIAXone 1GM/50ML D5W 50 ML IV SCH (10:33)
[2021-10-06] MEDS ORDERED: FUROSEMIDE 20 MG/2 ML VIAL IV ONE (11:30)
[2021-10-06 12:28] VITALS: BP 109/69
[2021-10-06 17:00] VITALS: BP 108/64
[2021-10-06 22:00] VITALS: BP 112/70
[2021-10-06] MEDS: INSULIN LANTUS (GLARGINE) 1 /0.01ml (100units/ml) SC SCH (22:12)
[2021-10-06] MEDS: TAMSULOSIN HYDROCHLORIDE 0.4 MG CAP PO SCH (22:18)
[2021-10-07] MEDS: IPRATROPIUM BROM 0.5 MG/2.5ML INH SOL NEB SCH ×4 (01:38→13:56)
[2021-10-07] MEDS: ALBUTEROL SULF 2.5 MG/0.5ML(0.5%) NEB SOLN NEB SCH ×4 (01:38→13:56)
[2021-10-07] MEDS: PROMETHAZINE-DM 5 ML ORAL SYRUP PO PRN (01:51)
[2021-10-07 05:00] VITALS: BP 111/68
[2021-10-07] MEDS: ACCU-CHEK COMFORT CURVE STRIP VI SCH ×2 (06:04→11:47)
[2021-10-07] MEDS: InsuLIN REG 1unit/0.01ml Soln (100units/ml) SC SCH ×2 (06:15→11:52)
[2021-10-07] MEDS: cefTRIAXone 1GM/50ML D5W 50 ML IV SCH (08:07)
[2021-10-07 08:10] VITALS: BP 110/70
[2021-10-07] MEDS: FAMOTIDINE 20 MG TAB PO SCH (09:51)
[2021-10-07] MEDS: AZITHROMYCIN 500MG/ 250ML 250 ML IV SCH (09:51)
[2021-10-07] MEDS: ATORVASTATIN 20 MG TAB PO SCH (09:51)
[2021-10-07] MEDS: FINASTERIDE 5 MG TAB PO SCH (09:51)
[2021-10-07] MEDS: APIXABAN 5 MG TAB PO SCH (09:52)
[2021-10-07] MEDS ORDERED: [UNRECOGNIZED DRUG - CODE] XX (11:09)
[2021-10-07] MEDS ORDERED: LANCKIT12 XX (11:09)
[2021-10-07] MEDS ORDERED: INSLANTI SC (11:09)
[2021-10-07] MEDS ORDERED: APIX5TAB PO (11:09)
[2021-10-07] MEDS ORDERED: INSREGI SC (11:09)
[2021-10-07 12:44] VITALS: BP 110/70
[2021-10-07 17:00] VITALS: BP 115/77
[2021-10-11] MEDS ORDERED: APIXABAN 5 MG TAB PO SCH (10:00)
== END 2021-10-07 18:44 | disposition home or self-care (01) | DRG 175 ==
LOC: ER 13:50 → TELE 10-03 01:20 → TELE-WESTW 10-03 04:00
PROVIDERS: ADMIT Internal Medicine; ATTEND Internal Medicine Pulmonary Disease
DX: I26.99 Other pulmonary embolism without acute cor pulmonale (principal); J18.9 Pneumonia, unspecified organism; J96.11 Chronic respiratory failure with hypoxia; E78.5 Hyperlipidemia, unspecified; I10 Essential (primary) hypertension; U09.9 Post COVID-19 condition, unspecified; E66.9 Obesity, unspecified; E87.6 Hypokalemia; K40.20 Bilateral inguinal hernia, without obstruction or gangrene, not specified as recurrent; N40.0 Benign prostatic hyperplasia without lower urinary tract symptoms; R79.89 Other specified abnormal findings of blood chemistry; D64.9 Anemia, unspecified; Z20.822 Contact with and (suspected) exposure to COVID-19; Z82.49 Family history of ischemic heart disease and other diseases of the circulatory system; Z82.5 Family history of asthma and other chronic lower respiratory diseases; Z87.01 Personal history of pneumonia (recurrent); Z68.32 Body mass index [BMI] 32.0-32.9, adult; E11.65 Type 2 diabetes mellitus with hyperglycemia
CPT/HCPCS: 36415; 71045; 71046; 71260; 74177; 80048; 80053; 80061; 81001; 82270; 82306; 82962; 83036; 83540; 83550; 83735; 83880; 84443; 84484; 85025; 85379; 85610; 85730; 87040; 87070; 87077; 87086; 87205; 93005; 93306; 93970; 94640; 96365; 96372; 97163; G0378; J0696; J1100; J1815